=== PATIENT | male | born 1980 | race Caucasian/White ===

== ENCOUNTER 2017-10-05 13:08 | Emergency (ER) | payer BC ==
[2017-10-05] MEDS ORDERED: DUONEB 0.5-3 MG/3 ml Neb IH ONE ×2 (13:23→13:39)
--- NOTE | 2017-10-05 13:29 | ERPHSYRPT ---
- History of Present Illness Time Seen by Provider: 10/05/17 13:24 Source: patient Exam Limitations: no limitations Physician History: The patient is a 37-year-old male who was sent over from [facility] with the patient was being seen for an abrupt onset of shortness of breath that lasted momentarily and for overall weakness. He states that it was hard to get a full breath but now is much better. He also feels just tired and weak. This started earlier today. He denies nausea, vomiting, or diarrhea. He denies headache. He denies sore throat. He did not receive an influenza vaccination this year. His past medical history is significant for pulmonary fibrosis and hypertension. Timing/Duration: today, hour(s) (2) Activities at Onset: none Severity of Dyspnea-Max: mild Severity of Dyspnea-Current: none Possible Cause: no prior episodes Associated Symptoms: cough, No wheezing Allergies/Adverse Reactions: bupropion [From Wellbutrin] Allergy (Verified 10/05/17 13:31) codeine Allergy (Verified 10/05/17 13:31) Home Medications: Fluticasone/Vilanterol [Breo Ellipta 200-25 Mcg INH] 1 inh PO DAILY 10/05/17 [ History] Lisinopril 20 mg [Zestril 20 MG] 20 mg PO DAILY 10/05/17 [History] Hx Tetanus, Diphtheria Vaccination/Date Given: Yes (UP TO DATE) Hx Influenza Vaccination/Date Given: No - Review of Systems Constitutional: No Fever, No Chills Eyes: No Symptoms Ears, Nose, & Throat: No Symptoms Respiratory: Cough Cardiac: No Chest Pain, No Edema, No Syncope Abdominal/Gastrointestinal: No Abdominal Pain, No Nausea, No Vomiting, No Diarrhea Genitourinary Symptoms: No Dysuria Musculoskeletal: No Back Pain, No Neck Pain Skin: No Rash Neurological: No Symptoms Psychological: No Symptoms Endocrine: No Symptoms Hematologic/Lymphatic: No Symptoms Immunological/Allergic: No Symptoms All Other Systems: Reviewed and Negative - Past Medical History Pertinent Past Medical History: Yes Other Medical History: EARS - Past Surgical History Past Surgical History: Yes Other Surgical History: EARS. TONSILECTOMY - Social History Smoking Status: Current every day smoker How long have you smoked: 20 Exposure to second hand smoke: No Drug Use: none Patient Lives Alone: No - Nursing Vital Signs Nursing Vital Signs: Initial Vital Signs Temperature 97.8 F 10/05/17 13:15 Pulse Rate 87 10/05/17 13:15 Respiratory Rate 16 10/05/17 13:15 Blood Pressure 129/88 10/05/17 13:15 O2 Sat by Pulse Oximetry 96 10/05/17 13:15 Pain Scale Pain Intensity 0 - Physical Exam General Appearance: no apparent distress, alert Eye Exam: PERRL/EOMI Ears, Nose, Throat Exam: hearing grossly normal, pharyngeal erythema Neck Exam: normal inspection, supple Respiratory Exam: normal breath sounds, lungs clear Cardiovascular/Chest Exam: normal heart sounds, regular rate/rhythm Abdominal/Gastrointestinal Exam: soft, No tenderness, No distention, No mass Rectal Exam: not done Extremity Exam: non-tender, normal range of motion, normal inspection, no calf tenderness, no pedal edema Neurologic Exam: alert, oriented x 3, cooperative, 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, sensation nml, No motor deficits Skin Exam: normal color, warm, No dry SpO2 Interpretation: normal - Course EKG Interpreted by Me: RATE, Sinus Rhythm, NORMAL AXIS, NORMAL INTERVALS, NORMAL QRS, NORMAL ST-T - Radiology Exams Chest X-ray Interpretation: Teleradiologist Report, Negative (per Dr Douglas.) Ordered Tests: Active Orders 24 hr Category Date Time Status EKG-ER Only STAT Care 10/05/17 13:21 Active CHEST 2 VIEWS (PA AND LAT) Stat Exams 10/05/17 13:22 Completed CBC W DIFF Stat Lab 10/05/17 13:40 Completed CMP Stat Lab 10/05/17 13:40 Completed TROPONIN Q3H Lab 10/05/17 13:30 Completed TROPONIN Q3H Lab 10/05/17 16:30 Ordered TROPONIN Q3H Lab 10/05/17 19:30 Ordered TROPONIN Q3H Lab 10/05/17 22:30 Ordered TROPONIN Q3H Lab 10/06/17 01:30 Ordered Respiratory Nebulizer STAT RT 10/05/17 13:24 Completed Medication Summary Discontinued Medications Generic Name Dose Route Start Last Admin Trade Name Freq PRN Reason Stop Dose Admin Albuterol/Ipratropium 3 ml 10/05/17 13:23 10/05/17 13:39 Duoneb 0.5-3 Mg/3 Ml Neb IH 10/05/17 13:24 3 ml STAT ONE Administration Albuterol/Ipratropium Confirm 10/05/17 13:39 Duoneb 0.5-3 Mg/3 Ml Neb Administered 10/05/17 13:40 Dose 3 ml IH .STK-MED ONE Lab/Rad Data: Laboratory Result Diagrams 10/05/17 13:40 10/05/17 13:40 Laboratory Results 10/05/17 10/05/17 10/05/17 Range/Units 13:40 13:40 13:40 WBC 9.0 (4.0-10.5) K/mm3 RBC 5.02 (4.1-5.6) M/mm3 Hgb 15.2 (12.5-18.0) gm/dl Hct 45.4 (42-50) % MCV 90.4 (78-100) fl MCH 30.3 (26-32) pg MCHC 33.5 (32-36) g/dl RDW 13.3 (11.5-14.0) % Plt Count 225 (150-450) K/mm3 MPV 10.0 H (6-9.5) fl Gran % 62.4 (36.0-66.0) % Lymphocytes % 26.8 (24.0-44.0) % Monocytes % 8.4 (0.0-12.0) % Eosinophils % 2.0 (0.00-5.0) % Basophils % 0.4 (0.0-0.4) % Basophils # 0.04 (0-0.4) Sodium 136 (136-145) mEq/L Potassium 3.8 (3.5-5.1) mEq/L Chloride 99 (98-107) mEq/L Carbon Dioxide 24.1 (21-32) mEq/L Anion Gap 16.4 H (5-15) MEQ/L BUN 10 (9-20) mg/dL Creatinine 0.91 (0.55-1.30) mg/dl Estimated GFR > 60 ML/MIN Glucose 107 (70-110) MG/DL Calcium 9.7 (8.5-10.1) mg/dL Total Bilirubin 0.40 (0.2-1.0) mg/dL AST 28 (15-37) U/L ALT 38 (12-78) U/L Alkaline Phosphatase 91 (46-116) U/L Troponin I (0.000-0.056) ng/ml Serum Total Protein 7.9 (6.4-8.2) gm/dL Albumin 4.0 (3.4-5.0) g/dL Influenza Type A Ag NEGATIVE (NEGATIVE) Influenza Type B Ag NEGATIVE (NEGATIVE) RSV (PCR) NEGATIVE (Negative) 10/05/17 Range/Units 13:30 WBC (4.0-10.5) K/mm3 RBC (4.1-5.6) M/mm3 Hgb (12.5-18.0) gm/dl Hct (42-50) % MCV (78-100) fl MCH (26-32) pg MCHC (32-36) g/dl RDW (11.5-14.0) % Plt Count (150-450) K/mm3 MPV (6-9.5) fl Gran % (36.0-66.0) % Lymphocytes % (24.0-44.0) % Monocytes % (0.0-12.0) % Eosinophils % (0.00-5.0) % Basophils % (0.0-0.4) % Basophils # (0-0.4) Sodium (136-145) mEq/L Potassium (3.5-5.1) mEq/L Chloride (98-107) mEq/L Carbon Dioxide (21-32) mEq/L Anion Gap (5-15) MEQ/L BUN (9-20) mg/dL Creatinine (0.55-1.30) mg/dl Estimated GFR ML/MIN Glucose (70-110) MG/DL Calcium (8.5-10.1) mg/dL Total Bilirubin (0.2-1.0) mg/dL AST (15-37) U/L ALT (12-78) U/L Alkaline Phosphatase (46-116) U/L Troponin I < 0.017 (0.000-0.056) ng/ml Serum Total Protein (6.4-8.2) gm/dL Albumin (3.4-5.0) g/dL Influenza Type A Ag (NEGATIVE) Influenza Type B Ag (NEGATIVE) RSV (PCR) (Negative) - Progress Progress: unchanged Counseled pt/family regarding: lab results, diagnosis, rad results - Departure Time of Disposition: 15:08 Departure Disposition: Home Clinical Impression: Weakness Condition: Stable Critical Care Time: No Referrals: VITALY SOTO [Primary Care Provider] - Additional Instructions: You had a sudden onset of weakness. It may be due to a viral illness. We checked you for influenza infection but the laboratory result was negative. All laboratory results were negative. The EKG was normal. Rest and stay well hydrated. Follow-up as needed.
[2017-10-05 13:47] LABS: BASOPHIL % 0.4 % (0.0-0.4); Basophil (Absolute #) 0.04 (0-0.4); Eosinophil (Absolute #) 0.18 (0-0.5); Granulocyte Absolute (ANC) 5.61 (1.4-6.9); Granulocytes % 62.4 % (36.0-66.0); Hematocrit 45.4 % (42-50); Hemoglobin 15.2 gm/dl (12.5-18.0); Lymphocyte (Absolute #) 2.41 (1.0-4.6); Lymphocytes % 26.8 % (24.0-44.0); Mean Cell Volume 90.4 fl (78-100); Mean Corpuscular Hemoglobin 30.3 pg (26-32); Mean Corpuscular Hgb Concent. 33.5 g/dl (32-36); Monocyte (Absolute #) 0.76 (0.0-1.3); Monocytes % 8.4 % (0.0-12.0); Platelet Count 225 K/mm3 (150-450); Red Blood Count 5.02 M/mm3 (4.1-5.6); Red Cell Distribution Width 13.3 % (11.5-14.0)
--- NOTE | 2017-10-05 14:03 | XRAY ---
Indication: Short of breath. Comparison: May 13, 2017. PA/lateral chest again demonstrates normal heart, lungs, and bony thorax.
[2017-10-05 14:16] LABS: ALKALINE PHOSPHATASE 91 U/L (46-116); ANION GAP 16.4 MEQ/L (5-15); BLOOD UREA NITROGEN 10 mg/dL (9-20); CHLORIDE 99 mEq/L (98-107); Calcium 9.7 mg/dL (8.5-10.1); Carbon Dioxide 24.1 mEq/L (21-32); Creatinine 1 0.91 mg/dl (0.55-1.30); EST GLOMERULAR FILTRATION RATE > 60 ML/MIN; Glucose 107 MG/DL (70-110); Potassium 3.8 mEq/L (3.5-5.1); SGOT/AST 28 U/L (15-37); SGPT/ALT 38 U/L (12-78); SODIUM 136 mEq/L (136-145); Total Protein 7.9 gm/dL (6.4-8.2)
[2017-10-05 14:53] LABS: INFLUENZA A NEGATIVE (NEGATIVE); INFLUENZA B NEGATIVE (NEGATIVE); RESPIRATORY SYNCTIAL VIRUS NEGATIVE (Negative)
[2017-10-05 15:22] VITALS: BP 138/83; PULSE 92; O2SAT 96
== END 2017-10-05 15:23 | disposition home or self-care (01) ==
LOC: ED 13:08
DX: R53.1 Weakness (principal); I10 Essential (primary) hypertension
CPT/HCPCS: 36415; 71046; 80053; 84484; 85025; 87631; 93005; 94640; 99284; A9270-GY

== ENCOUNTER 2022-03-18 07:21 | Emergency (ER) | payer MEDICAID, OTHER ==
--- NOTE | 2022-03-18 07:59 | ERPHSYRPT ---
- History of Present Illness Source: patient, other () Exam Limitations: clinical condition Patient Subjective Stated Complaint: pt here for slurred speech since yesterday, came home from work and 1630 to find pt with slurred speech, he refused to come to be checked out, Triage Nursing Assessment: pt walked in, resp easy, face mask in place, speech slurred at times, has difficulty expressing self, able to undress self Physician History: 41 yo wm w confusion/expressive aphasia since 16:30 yesterday. Pt is alert and will follow commands but is oriented to name only. He has no focal weakness and has a great airway. Pt has a h/o HTN/smokes 1ppd/drinks alcohol daily. CP/dyspnea/N/V/D/fever/cough/coryza/drug use denied. Timing/Duration: yesterday (16:30) Severity: moderate Character of Deficits: impaired speech, other (confusion) Baseline/Normal Cognition: alert oriented x 3, alert but confused Current Cognition: alert but confused (Disoriented to place/time) Baseline Gait: walks w/o assistance Associated Symptoms: confusion, other (Expressive aphasia) Allergies/Adverse Reactions: bupropion [From Wellbutrin] Allergy (Verified 03/18/22 07:28) codeine Allergy (Verified 03/18/22 07:28) Home Medications: Fluticasone/Vilanterol [Breo Ellipta 200-25 Mcg INH] 1 inh PO DAILY 10/05/17 [History] Lisinopril 20 mg [Zestril 20 MG] 20 mg PO DAILY 10/05/17 [History] Hx Tetanus, Diphtheria Vaccination/Date Given: Yes (UP TO DATE) Hx Influenza Vaccination/Date Given: No Hx Pneumococcal Vaccination/Date Given: No Immunizations Up to Date: Yes Travel Risk - International Travel Have you traveled outside of the country in past 3 weeks: No - Coronavirus Screening Are you exhibiting any of the following symptoms?: No Close contact with a COVID-19 positive Pt in past 14-21 Days: No - Vaccine Status Have you recieved a Covid-19 vaccination: No - Review of Systems Constitutional: No Symptoms Eyes: No Symptoms Ears, Nose, & Throat: No Symptoms Respiratory: No Symptoms Cardiac: No Symptoms Abdominal/Gastrointestinal: No Symptoms Genitourinary Symptoms: No Symptoms Musculoskeletal: No Symptoms Skin: No Symptoms Neurological: Other (Confusion/Expressive aphasia) Psychological: Alcohol Abuse Endocrine: No Symptoms Hematologic/Lymphatic: No Symptoms Immunological/Allergic: No Symptoms - Past Medical History Pertinent Past Medical History: Yes Cardiac History: Hypertension Respiratory History: Other Other Medical History: EARS - Past Surgical History Past Surgical History: Yes Other Surgical History: EARS. TONSILECTOMY - Social History Smoking Status: Current every day smoker How long have you smoked: 20 Exposure to second hand smoke: No Drug Use: none Patient Lives Alone: No Significant Family History: no pertinent family hx - Nursing Vital Signs Nursing Vital Signs: Initial Vital Signs Temperature 97.1 F 03/18/22 07:30 Pulse Rate 62 03/18/22 07:30 Respiratory Rate 18 03/18/22 07:30 Blood Pressure 131/89 03/18/22 07:30 O2 Sat by Pulse Oximetry 100 03/18/22 07:30 Pain Scale Pain Intensity 0 Borderline hypertensive - Pearl Coma Scale Best Eye Response (Pearl): (4) open spontaneously Best Verbal Response (Ferriday): (5) oriented Best Motor Response (Pearl): (6) obeys commands Pearl Total: 15 - Physical Exam General Appearance: no apparent distress Eye Exam: bilateral eye: normal inspection, PERRL, EOMI Ears, Nose, Throat Exam: normal ENT inspection, TMs normal, pharynx normal, moist mucous membranes Neck Exam: normal inspection, non-tender, supple, full range of motion Respiratory: normal breath sounds, lungs clear, airway intact Cardiovascular: regular rate/rhythm, normal heart sounds, normal peripheral pulses, capillary refill <2 sec, No murmur Gastrointestinal: soft, normal bowel sounds, No tenderness Back Exam: normal inspection, normal range of motion, CVA tenderness, No vertebral tenderness Extremity Exam: normal inspection, normal range of motion Peripheral Pulses: carotid (R): 2+, carotid (L): 2+ Mental Status: alert, cooperative, 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 to place, 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 Exam: normal hearing, PERRL, No normal speech, No facial droop, No facial paresthesias, No facial weakness Motor/Sensory: no motor deficit, negative Babinski's sign DTR: bicep (R): 2+, bicep (L): 2+ Skin Exam: normal color, warm, dry SpO2 Interpretation: normal SpO2: 100 O2 Delivery: Room Air - Course Nursing assessment & vital signs reviewed: Yes EKG Interpreted by Me: RATE (NSR/R71/Normal QT-QTc/No acute ST changes) - CT Exams Head CT Interpretation: Tele-radiologist Report (Acute/subacute infarcts L posterior frontal/l temporal/L parietal lobes) Ordered Tests: Active Orders 24 hr Category Date Time Status EKG-ER Only STAT Care 03/18/22 07:36 Completed HEAD WITHOUT CONTRAST [CT] Stat Exams 03/18/22 07:31 Completed CBC W DIFF Stat Lab 03/18/22 07:55 Completed CMP Stat Lab 03/18/22 07:55 Completed ETHYL ALCOHOL Stat Lab 03/18/22 07:55 Completed POCT GLUCOSE Stat Lab 03/18/22 07:49 Completed PROTIME WITH INR Stat Lab 03/18/22 07:55 Completed PTT Stat Lab 03/18/22 07:55 Completed TROPONIN Q3H Lab 03/18/22 07:55 Completed UA W/RFX CULTURE Stat Lab 03/18/22 08:00 Completed Urine Triage Profile Stat Lab 03/18/22 07:42 Completed Medication Summary Discontinued Medications Generic Name Dose Route Start Last Admin Trade Name Freq PRN Reason Stop Dose Admin Aspirin 324 mg 03/18/22 09:33 03/18/22 09:35 Aspirin 81 Mg Tab.Chew PO 03/18/22 09:34 324 mg STAT ONE Administration Lab/Rad Data: Laboratory Result Diagrams 03/18/22 07:55 03/18/22 07:55 Laboratory Results 03/18/22 03/18/22 03/18/22 Range/Units 08:00 07:55 07:55 WBC (4.0-10.5) x10^3/uL RBC (4.1-5.6) x10^6/uL Hgb (12.5-18.0) g/dL Hct (42-50) % MCV (78-100) fL MCH (26-32) pg MCHC (32-36) g/dL RDW (11.5-14.0) % Plt Count (150-450) x10^3/uL MPV (7.5-11.0) fL Gran % (36.0-66.0) % Immature Gran % (Auto) (0.00-0.4) % Nucleat RBC Rel Count (0.00-0.1) % Eos # (Auto) (0-0.5) x10^3/uL Immature Gran # (Auto) (0.00-0.03) x10^3u/L Absolute Lymphs (auto) (1.0-4.6) x10^3/uL Absolute Monos (auto) (0.0-1.3) x10^3/uL Absolute Nucleated RBC (0.00-0.01) x10^3u/L Lymphocytes % (24.0-44.0) % Monocytes % (0.0-12.0) % Eosinophils % (0.00-5.0) % Basophils % (0.0-0.4) % Absolute Granulocytes (1.4-6.9) x10^3/uL Basophils # (0-0.4) x10^3/uL PT 11.3 (9.4-12.5) SECONDS INR 1.07 (0.8-3.0) APTT 26.4 (25.1-36.5) SECONDS Sodium (137-145) mmol/L Potassium (3.5-5.1) mmol/L Chloride (98-107) mmol/L Carbon Dioxide (22-30) mmol/L Anion Gap (5-15) MEQ/L BUN (9-20) mg/dL Creatinine (0.66-1.25) mg/dL Estimated GFR ML/MIN Glucose (74-106) mg/dL POC Glucometer (74 to 106) mg/dL Calcium (8.4-10.2) mg/dL Total Bilirubin (0.2-1.3) mg/dL AST (17-59) U/L ALT (0-50) U/L Alkaline Phosphatase (38-126) U/L Troponin I < 0.012 (0.000-0.034) ng/mL Serum Total Protein (6.3-8.2) g/dL Albumin (3.5-5.0) g/dL Urinalys Dipstick Clnc MAIN LAB Urine Color YELLOW (YELLOW) Urine Appearance CLOUDY (CLEAR) Urine pH 5.5 (5-6) Ur Specific [place] >=1.030 (1.005-1.025) POC Urine Protein Conf 30 (Negative) Urine Ketones NEGATIVE (NEGATIVE) Urine Nitrite NEGATIVE (NEGATIVE) Urine Bilirubin SMALL (NEGATIVE) Urine Urobilinogen 1 (0-1) mg/dL Urine Leukocytes NEGATIVE (NEGATIVE) Urine WBC (Auto) NONE (0-5) /HPF Urine RBC (Auto) NONE (0-2) /HPF U Epithel Cells (Auto) RARE (FEW) /HPF Urine Bacteria (Auto) RARE (NEGATIVE) /HPF Urine RBC NEGATIVE (0-5) Daniele/ul Unidentified Crystals 25-50 (NEGATIVE) /HPF Amorphous Crystals MANY (NEGATIVE) /HPF Other Casts (Auto) 5-10 (NEGATIVE) /LPF Urine Mucus (Auto) MANY (NEGATIVE) /HPF Ur Culture Indicated? NO Urine Glucose NEGATIVE (NEGATIVE) mg/dL Urine Opiates Level (NEGATIVE) Ur Methadone (NEGATIVE) Urine Barbiturates (NEGATIVE) Ur Phencyclidine (PCP) (NEGATIVE) Urine Amphetamine (NEGATIVE) U Benzodiazepine Level (NEGATIVE) Urine Cocaine (NEGATIVE) Urine Marijuana (THC) (NEGATIVE) Ethyl Alcohol (0-10) mg/dL 03/18/22 03/18/22 03/18/22 Range/Units 07:55 07:55 07:49 WBC 8.1 (4.0-10.5) x10^3/uL RBC 4.71 (4.1-5.6) x10^6/uL Hgb 15.8 (12.5-18.0) g/dL Hct 46.3 (42-50) % MCV 98.3 (78-100) fL MCH 33.5 H (26-32) pg MCHC 34.1 (32-36) g/dL RDW 13.2 (11.5-14.0) % Plt Count 234 (150-450) x10^3/uL MPV 10.2 (7.5-11.0) fL Gran % 63.3 (36.0-66.0) % Immature Gran % (Auto) 0.5 H (0.00-0.4) % Nucleat RBC Rel Count 0.0 (0.00-0.1) % Eos # (Auto) 0.14 (0-0.5) x10^3/uL Immature Gran # (Auto) 0.04 H (0.00-0.03) x10^3u/L Absolute Lymphs (auto) 1.91 (1.0-4.6) x10^3/uL Absolute Monos (auto) 0.83 (0.0-1.3) x10^3/uL Absolute Nucleated RBC 0.00 (0.00-0.01) x10^3u/L Lymphocytes % 23.6 L (24.0-44.0) % Monocytes % 10.2 (0.0-12.0) % Eosinophils % 1.7 (0.00-5.0) % Basophils % 0.7 (0.0-0.4) % Absolute Granulocytes 5.13 (1.4-6.9) x10^3/uL Basophils # 0.06 (0-0.4) x10^3/uL PT (9.4-12.5) SECONDS INR (0.8-3.0) APTT (25.1-36.5) SECONDS Sodium 137 (137-145) mmol/L Potassium 4.0 (3.5-5.1) mmol/L Chloride 100 (98-107) mmol/L Carbon Dioxide 27 (22-30) mmol/L Anion Gap 13.8 (5-15) MEQ/L BUN 16 (9-20) mg/dL Creatinine 1.16 (0.66-1.25) mg/dL Estimated GFR > 60.0 ML/MIN Glucose 122 H (74-106) mg/dL POC Glucometer 130 H (74 to 106) mg/dL Calcium 9.7 (8.4-10.2) mg/dL Total Bilirubin 0.80 (0.2-1.3) mg/dL AST 51 (17-59) U/L ALT 44 (0-50) U/L Alkaline Phosphatase 106 (38-126) U/L Troponin I (0.000-0.034) ng/mL Serum Total Protein 7.8 (6.3-8.2) g/dL Albumin 4.4 (3.5-5.0) g/dL Urinalys Dipstick Clnc Urine Color (YELLOW) Urine Appearance (CLEAR) Urine pH (5-6) Ur Specific [place] (1.005-1.025) POC Urine Protein Conf (Negative) Urine Ketones (NEGATIVE) Urine Nitrite (NEGATIVE) Urine Bilirubin (NEGATIVE) Urine Urobilinogen (0-1) mg/dL Urine Leukocytes (NEGATIVE) Urine WBC (Auto) (0-5) /HPF Urine RBC (Auto) (0-2) /HPF U Epithel Cells (Auto) (FEW) /HPF Urine Bacteria (Auto) (NEGATIVE) /HPF Urine RBC (0-5) Daniele/ul Unidentified Crystals (NEGATIVE) /HPF Amorphous Crystals (NEGATIVE) /HPF Other Casts (Auto) (NEGATIVE) /LPF Urine Mucus (Auto) (NEGATIVE) /HPF Ur Culture Indicated? Urine Glucose (NEGATIVE) mg/dL Urine Opiates Level (NEGATIVE) Ur Methadone (NEGATIVE) Urine Barbiturates (NEGATIVE) Ur Phencyclidine (PCP) (NEGATIVE) Urine Amphetamine (NEGATIVE) U Benzodiazepine Level (NEGATIVE) Urine Cocaine (NEGATIVE) Urine Marijuana (THC) (NEGATIVE) Ethyl Alcohol < 10 (0-10) mg/dL 03/18/22 Range/Units 07:42 WBC (4.0-10.5) x10^3/uL RBC (4.1-5.6) x10^6/uL Hgb (12.5-18.0) g/dL Hct (42-50) % MCV (78-100) fL MCH (26-32) pg MCHC (32-36) g/dL RDW (11.5-14.0) % Plt Count (150-450) x10^3/uL MPV (7.5-11.0) fL Gran % (36.0-66.0) % Immature Gran % (Auto) (0.00-0.4) % Nucleat RBC Rel Count (0.00-0.1) % Eos # (Auto) (0-0.5) x10^3/uL Immature Gran # (Auto) (0.00-0.03) x10^3u/L Absolute Lymphs (auto) (1.0-4.6) x10^3/uL Absolute Monos (auto) (0.0-1.3) x10^3/uL Absolute Nucleated RBC (0.00-0.01) x10^3u/L Lymphocytes % (24.0-44.0) % Monocytes % (0.0-12.0) % Eosinophils % (0.00-5.0) % Basophils % (0.0-0.4) % Absolute Granulocytes (1.4-6.9) x10^3/uL Basophils # (0-0.4) x10^3/uL PT (9.4-12.5) SECONDS INR (0.8-3.0) APTT (25.1-36.5) SECONDS Sodium (137-145) mmol/L Potassium (3.5-5.1) mmol/L Chloride (98-107) mmol/L Carbon Dioxide (22-30) mmol/L Anion Gap (5-15) MEQ/L BUN (9-20) mg/dL Creatinine (0.66-1.25) mg/dL Estimated GFR ML/MIN Glucose (74-106) mg/dL POC Glucometer (74 to 106) mg/dL Calcium (8.4-10.2) mg/dL Total Bilirubin (0.2-1.3) mg/dL AST (17-59) U/L ALT (0-50) U/L Alkaline Phosphatase (38-126) U/L Troponin I (0.000-0.034) ng/mL Serum Total Protein (6.3-8.2) g/dL Albumin (3.5-5.0) g/dL Urinalys Dipstick Clnc Urine Color (YELLOW) Urine Appearance (CLEAR) Urine pH (5-6) Ur Specific [place] (1.005-1.025) POC Urine Protein Conf (Negative) Urine Ketones (NEGATIVE) Urine Nitrite (NEGATIVE) Urine Bilirubin (NEGATIVE) Urine Urobilinogen (0-1) mg/dL Urine Leukocytes (NEGATIVE) Urine WBC (Auto) (0-5) /HPF Urine RBC (Auto) (0-2) /HPF U Epithel Cells (Auto) (FEW) /HPF Urine Bacteria (Auto) (NEGATIVE) /HPF Urine RBC (0-5) Daniele/ul Unidentified Crystals (NEGATIVE) /HPF Amorphous Crystals (NEGATIVE) /HPF Other Casts (Auto) (NEGATIVE) /LPF Urine Mucus (Auto) (NEGATIVE) /HPF Ur Culture Indicated? Urine Glucose (NEGATIVE) mg/dL Urine Opiates Level NEGATIVE (NEGATIVE) Ur Methadone NEGATIVE (NEGATIVE) Urine Barbiturates NEGATIVE (NEGATIVE) Ur Phencyclidine (PCP) NEGATIVE (NEGATIVE) Urine Amphetamine NEGATIVE (NEGATIVE) U Benzodiazepine Level NEGATIVE (NEGATIVE) Urine Cocaine NEGATIVE (NEGATIVE) Urine Marijuana (THC) NEGATIVE (NEGATIVE) Ethyl Alcohol (0-10) mg/dL - Progress Progress Note: 03/18/22 09:[address] Buckner at [facility]Ok to give 324mg ASA po 03/18/22 21:10 Pt stable throughout stay w consistent expressive aphasia/mild confusion. 342mg ASA given./Pt did not meet TPA time frame. Counseled pt/family regarding: lab results, diagnosis, rad results - Departure Departure Disposition: Transfer Clinical Impression: CVA (cerebral vascular accident) Condition: Stable Critical Care Time: Yes Critical Care Time(excluding separately billable procedures): Critical 30-74 mins Referrals: VITALY SOTO, [employer]PERATOR [Primary Care Provider] - Follow up/PCP as directed
[2022-03-18 08:08] LABS: Bacteria RARE /HPF (NEGATIVE); Epithelial Cells RARE /HPF (FEW); Mucus MANY /HPF (NEGATIVE)
[2022-03-18 08:10] LABS: Absolute Neutrophil Ct (ANC) 5.13 x10^3/uL (1.4-6.9); Basophil (Absolute #) 0.06 x10^3/uL (0-0.4); Eosinophil % 1.7 % (0.00-5.0); Eosinophil (Absolute #) 0.14 x10^3/uL (0-0.5); Hematocrit 46.3 % (42-50); Hemoglobin 15.8 g/dL (12.5-18.0); Lymphocyte (Absolute #) 1.91 x10^3/uL (1.0-4.6); Lymphocytes % 23.6 % (24.0-44.0); Mean Cell Volume 98.3 fL (78-100); Mean Corpuscular Hemoglobin 33.5 pg (26-32); Mean Corpuscular Hgb Concent. 34.1 g/dL (32-36); Mean Platelet Volume 10.2 fL (7.5-11.0); Monocyte (Absolute #) 0.83 x10^3/uL (0.0-1.3); Monocytes % 10.2 % (0.0-12.0); Neutrophil % 63.3 % (36.0-66.0); Platelet Count 234 x10^3/uL (150-450); Red Blood Count 4.71 x10^6/uL (4.1-5.6); Red Cell Distribution Width 13.2 % (11.5-14.0); White Blood Count 8.1 x10^3/uL (4.0-10.5)
[2022-03-18 08:20] LABS: Appearance CLOUDY (CLEAR); Bilirubin SMALL (NEGATIVE); Glucose NEGATIVE (NEGATIVE); Ketones NEGATIVE (NEGATIVE); Nitrite NEGATIVE (NEGATIVE); Ph 5.5 (5-6); Protein,Urine Dip 30 (Negative); RBC NEGATIVE Ery/ul (0-5); Specific Gravity >=1.030 (1.005-1.025); Urobilinogen 1 mg/dL (0-1)
[2022-03-18 08:21] LABS: Dipstick done @ ? MAIN LAB
[2022-03-18 08:22] LABS: Amphetamine,Urine NEGATIVE (NEGATIVE); Barbiturate,Urine NEGATIVE (NEGATIVE); Benzodiazepine,Urine NEGATIVE (NEGATIVE); Cocaine,Urine NEGATIVE (NEGATIVE); Methadone,Urine NEGATIVE (NEGATIVE); Opiate,Urine NEGATIVE (NEGATIVE); PCP,Urine NEGATIVE (NEGATIVE); THC,Urine NEGATIVE (NEGATIVE)
[2022-03-18 08:36] LABS: Amourphous Crystal MANY /HPF (NEGATIVE); Crystals Unidentified 25-50 /HPF (NEGATIVE)
[2022-03-18 08:47] LABS: ALBUMIN 4.4 g/dL (3.5-5.0); ALKALINE PHOSPHATASE 106 U/L (38-126); ANION GAP 13.8 MEQ/L (5-15); BLOOD UREA NITROGEN 16 mg/dL (9-20); CHLORIDE 100 mmol/L (98-107); Calcium 9.7 mg/dL (8.4-10.2); Carbon Dioxide 27 mmol/L (22-30); Creatinine 1 1.16 mg/dL (0.66-1.25); EST GLOMERULAR FILTRATION RATE > 60.0 ML/MIN; ETHYL ALCOHOL < 10 mg/dL (0-10); Glucose 122 mg/dL (74-106); SGOT/AST 51 U/L (17-59); SGPT/ALT 44 U/L (0-50); SODIUM 137 mmol/L (137-145); Total Protein 7.8 g/dL (6.3-8.2)
[2022-03-18 08:49] LABS: INR 1.07 (0.8-3.0); PROTIME 11.3 SECONDS (9.4-12.5); PTT 26.4 SECONDS (25.1-36.5)
--- NOTE | 2022-03-18 08:50 | XRAY ---
Indication: Slurred speech. Confusion. Multiple contiguous images obtained through the head without contrast. Comparison: None Left midanterior parietal lobe demonstrates focus of cortical/subcortical hypoattenuation measuring at least 3.8 x 3.8 x 4.7 cm favoring cytotoxic edema consistent with acute ischemia. Smaller focus acute ischemia left posterior parietal lobe measuring at least 2.4 x 2.1 x 2.0 cm. No acute hemorrhage or mass effect. Fourth ventricle is midline without hydrocephalus. Bony calvarium intact. Previous bilateral mastoidectomy. Paranasal sinuses are clear. Impression: CT findings favoring multifocal left parietal lobe acute ischemias. No acute hemorrhage/mass effect. Comment: Preliminary interpretation made by [facility]. No critical discrepancy.
[2022-03-18] MEDS ORDERED: BABY ASPIRIN 81 MG CHEW PO ONE (09:33)
[2022-03-18 10:21] VITALS: BP 134/93; PULSE 73
[2022-03-18 13:26] LABS: Urine Cultured Indicated? NO
[2022-03-18 21:13] VITALS: O2SAT 100
== END 2022-03-18 10:45 | disposition short-term general hospital (02) ==
LOC: ED 07:21
DX: I63.9 Cerebral infarction, unspecified (principal); R47.01 Aphasia; I10 Essential (primary) hypertension; R41.0 Disorientation, unspecified; Z72.0 Tobacco use; Z79.899 Other long term (current) drug therapy; Z28.310 Unvaccinated for COVID-19
CPT/HCPCS: 36415; 70450; 80053; 80307; 81015; 82947; 84484; 85025; 85610; 85730; 93005; 99285; 99291; A9270-GY; G0480

== ENCOUNTER 2024-03-07 22:22 | Emergency (ER) | payer OTHER ==
--- NOTE | 2024-03-07 22:37 | ERPHSYRPT ---
- History of Present Illness Time Seen by Provider: 03/07/24 22:37 Historian: patient, family Exam Limitations: no limitations Physician History: This is a 43-year-old white male patient who has a history of hyperlipidemia, hypertension and CVA (in the past) and presents with vomiting that began this morning and repeated an episode at work and at home after work. 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 Today the symptoms were worse. Today he was actually vomiting. Patient, despite having nausea and vomiting, still consumed "2 beers" after work yesterday and after work today. He denies chest pain. He denies shortness of breath. He denies abdominal pain. He does not have a headache. He has no visual changes. Patient is a daily smoker of cigarettes. Patient denies being exposed to viral illness. He also states no other individuals have had similar symptoms as he is having. Timing/Duration: yesterday Activities at Onset: none Severity of Pain-Max: none Severity of Pain-Current: none Modifying Factors: Improves With: vomiting Associated Symptoms: nausea, vomiting, other (Leg cramps), No chest pain, No loss of appetite, No weakness Previous symptoms: no prior history, no recent treatment Allergies/Adverse Reactions: bupropion [From Wellbutrin] Allergy (Verified 03/07/24 22:31) codeine Allergy (Verified 03/07/24 22:31) Home Medications: Lisinopril 20 mg [Zestril 20 MG] 10 mg PO HS 10/05/17 [History] Atorvastatin Calcium [Lipitor] 80 mg PO HS 03/07/24 [History] Folic Acid 1 mg [Folate 1 mg] 1 mg PO HS 03/07/24 [History] Hx Tetanus, Diphtheria Vaccination/Date Given: Yes (UP TO DATE) Hx Influenza Vaccination/Date Given: No Hx Pneumococcal Vaccination/Date Given: No Travel Risk - International Travel Have you traveled outside of the country in past 3 weeks: No - Emerging Infectious Disease Are you exhibiting symptoms associated with any current EIDs: No - Review of Systems Constitutional: No Symptoms Eyes: No Symptoms Ears, Nose, & Throat: No Symptoms Respiratory: No Symptoms Cardiac: No Symptoms Abdominal/Gastrointestinal: Nausea, Vomiting, No Abdominal Pain, No Diarrhea, No Constipation, No Appetite Changes Genitourinary Symptoms: No Symptoms Musculoskeletal: Other (Patient has muscle cramping in his legs and arms) Skin: No Symptoms Neurological: No Symptoms Psychological: No Symptoms Endocrine: No Symptoms Hematologic/Lymphatic: No Symptoms Immunological/Allergic: No Symptoms All Other Systems: Reviewed and Negative - Past Medical History Pertinent Past Medical History: Yes Cardiac History: Hypertension Respiratory History: Other Other Medical History: EARS - Past Surgical History Past Surgical History: Yes Other Surgical History: EARS. TONSILECTOMY Significant Family History: no pertinent family hx - Social History Smoking Status: Current every day smoker How long have you smoked: 20 Exposure to second hand smoke: No Drug Use: none Patient Lives Alone: No - Nursing Vital Signs Nursing Vital Signs: Initial Vital Signs Temperature 98.1 F 03/07/24 22:34 Pulse Rate 76 03/07/24 22:34 Respiratory Rate 16 03/07/24 22:34 Blood Pressure 151/104 03/07/24 22:34 O2 Sat by Pulse Oximetry 99 03/07/24 22:34 Pain Scale Pain Intensity 0 - Physical Exam General Appearance: no apparent distress, alert Eye Exam: PERRL/EOMI, eyes nml inspection Ears, Nose, Throat Exam: normal ENT inspection, moist mucous membranes Neck Exam: normal inspection, non-tender, supple, full range of motion Respiratory Exam: normal breath sounds, lungs clear, airway intact, No chest tenderness, No respiratory distress Cardiovascular Exam: regular rate/rhythm, normal heart sounds, normal peripheral pulses Gastrointestinal/Abdomen Exam: soft, normal bowel sounds, No tenderness Rectal Exam: not done Back Exam: normal inspection, normal range of motion, No CVA tenderness, No vertebral tenderness Extremity Exam: normal inspection, normal range of motion, pelvis stable Neurologic Exam: alert, oriented x 3, cooperative, materials planner II-XII nml as tested, normal mood/affect, nml cerebellar function, nml station & gait, sensation nml Skin Exam: normal color, warm, dry Lymphatic Exam: No adenopathy SpO2 Interpretation: normal O2 Delivery: Room Air - Course Nursing assessment & vital signs reviewed: Yes Ordered Tests: Active Orders 24 hr Category Date Time Status IV Insertion STAT Care 03/07/24 22:52 Active AMYLASE Stat Lab 03/07/24 23:05 Completed CBC W DIFF Stat Lab 06/05/24 23:05 Completed CMP Stat Lab 03/07/24 23:05 Completed ETHYL ALCOHOL Stat Lab 03/07/24 23:05 Completed LIPASE Stat Lab 03/07/24 23:05 Completed Lactic Acid Stat Lab 03/07/24 22:52 Completed MAGNESIUM Stat Lab 03/07/24 23:05 Completed UA W/RFX UR CULTURE Stat Lab 03/07/24 22:54 Completed Medication Summary Generic Name Dose Route Start Last Admin Trade Name Freq PRN Reason Stop Dose Admin Sodium Chloride 1,000 mls @ 999 mls/hr 03/07/24 22:52 03/07/24 23:00 Sodium Chloride 0.9% 1000 Ml IV 03/07/24 23:52 999 mls/hr .Q1H1M STA Administration Discontinued Medications Generic Name Dose Route Start Last Admin Trade Name Freq PRN Reason Stop Dose Admin Sodium Chloride Confirm 03/07/24 22:55 Sodium Chloride 0.9% 1000 Ml Administered 03/07/24 22:56 Dose 1,000 mls @ ud .ROUTE .STK-MED ONE Ondansetron HCl 4 mg 03/07/24 22:52 03/07/24 23:00 Ondansetron Hcl 4 Mg/2 Ml Vial IV 03/07/24 22:53 4 mg STAT ONE Administration Ondansetron HCl Confirm 03/07/24 22:55 Ondansetron Hcl 4 Mg/2 Ml Vial Administered 03/07/24 22:56 Dose 4 mg .ROUTE .STK-MED ONE Pantoprazole Sodium 40 mg 03/07/24 22:52 03/07/24 23:00 Pantoprazole 40 Mg Vial IV 03/07/24 22:53 40 mg STAT ONE Administration Pantoprazole Sodium Confirm 03/07/24 22:55 Pantoprazole 40 Mg Vial Administered 03/07/24 22:56 Dose 40 mg IV .STK-MED ONE Lab/Rad Data: Laboratory Result Diagrams 03/07/24 23:05 03/07/24 23:05 Laboratory Results 03/07/24 03/07/24 03/07/24 Range/Units 23:05 23:05 22:54 WBC 10.5 (4.0-10.5) x10^3/uL RBC 4.77 (4.1-5.6) x10^6/uL Hgb 14.3 (12.5-18.0) g/dL Hct 41.6 L (42-50) % MCV 87.2 (78-100) fL MCH 30.0 (26-32) pg MCHC 34.4 (32-36) g/dL RDW 12.5 (11.5-14.0) % Plt Count 226 (150-450) x10^3/uL MPV 10.2 (7.5-11.0) fL Gran % 53.8 (36.0-66.0) % Immature Gran % (Auto) 0.5 H (0.00-0.4) % Nucleat RBC Rel Count 0.0 (0.00-0.1) % Eos # (Auto) 0.25 (0-0.5) x10^3/uL Immature Gran # (Auto) 0.05 H (0.00-0.03) x10^3u/L Absolute Lymphs (auto) 3.60 (1.0-4.6) x10^3/uL Absolute Monos (auto) 0.84 (0.0-1.3) x10^3/uL Absolute Nucleated RBC 0.00 (0.00-0.01) x10^3u/L Lymphocytes % 34.4 (24.0-44.0) % Monocytes % 8.0 (0.0-12.0) % Eosinophils % 2.4 (0.00-5.0) % Basophils % 0.9 (0.0-0.4) % Absolute Granulocytes 5.63 (1.4-6.9) x10^3/uL Basophils # 0.09 (0-0.4) x10^3/uL Sodium 135 (135-145) mmol/L Potassium 3.6 (3.5-5.1) mmol/L Chloride 104 (98-107) mmol/L Carbon Dioxide 18 L (22-30) mmol/L Anion Gap 16.6 H (5-15) MEQ/L BUN 21 H (9-20) mg/dL Creatinine 1.05 (0.66-1.25) mg/dL Estimated GFR 91.5 ML/MIN Glucose 124 H (74-106) mg/dL Lactic Acid (0.4-2.0) Calcium 9.5 (8.4-10.2) mg/dL Magnesium 1.9 (1.6-2.3) mg/dL Total Bilirubin 0.50 (0.2-1.3) mg/dL AST 28 (17-59) U/L ALT 24 (0-50) U/L Alkaline Phosphatase 97 (38-126) U/L Serum Total Protein 7.7 (6.3-8.2) g/dL Albumin 4.6 (3.5-5.0) g/dL Amylase 64 (30-110) U/L Lipase 103 (23-300) U/L Urine Color Yellow (Yellow) Urine Appearance Clear (Clear) Urine pH 5.5 (4.6-8.0) Ur Specific [place] >=1.030 A (1.005-1.030) Urine Protein Trace A (Negative) Urine Glucose (UA) Negative (Negative) mg/dL Urine Ketones Trace A (Negative) Urine Blood Negative (Negative) Urine Nitrite Negative (Negative) Urine Bilirubin Negative (Negative) Urine Urobilinogen 1.0 A (0.2) mg/dL Ur Leukocyte Esterase Negative (Negative) U Hyaline Cast (Auto) NONE SEEN (0-2) /LPF Urine Microscopic RBC 0-2 (0-5) /HPF Urine Microscopic WBC 0-2 (0-5) /HPF Ur Epithelial Cells None Seen (None Seen) /HPF Urine Bacteria None Seen (None Seen) /HPF Urine Culture Reflexed NO (NO) Ethyl Alcohol < 10 (0-10) mg/dL 03/07/24 Range/Units 22:52 WBC (4.0-10.5) x10^3/uL RBC (4.1-5.6) x10^6/uL Hgb (12.5-18.0) g/dL Hct (42-50) % MCV (78-100) fL MCH (26-32) pg MCHC (32-36) g/dL RDW (11.5-14.0) % Plt Count (150-450) x10^3/uL MPV (7.5-11.0) fL Gran % (36.0-66.0) % Immature Gran % (Auto) (0.00-0.4) % Nucleat RBC Rel Count (0.00-0.1) % Eos # (Auto) (0-0.5) x10^3/uL Immature Gran # (Auto) (0.00-0.03) x10^3u/L Absolute Lymphs (auto) (1.0-4.6) x10^3/uL Absolute Monos (auto) (0.0-1.3) x10^3/uL Absolute Nucleated RBC (0.00-0.01) x10^3u/L Lymphocytes % (24.0-44.0) % Monocytes % (0.0-12.0) % Eosinophils % (0.00-5.0) % Basophils % (0.0-0.4) % Absolute Granulocytes (1.4-6.9) x10^3/uL Basophils # (0-0.4) x10^3/uL Sodium (135-145) mmol/L Potassium (3.5-5.1) mmol/L Chloride (98-107) mmol/L Carbon Dioxide (22-30) mmol/L Anion Gap (5-15) MEQ/L BUN (9-20) mg/dL Creatinine (0.66-1.25) mg/dL Estimated GFR ML/MIN Glucose (74-106) mg/dL Lactic Acid 1.0 (0.4-2.0) Calcium (8.4-10.2) mg/dL Magnesium (1.6-2.3) mg/dL Total Bilirubin (0.2-1.3) mg/dL AST (17-59) U/L ALT (0-50) U/L Alkaline Phosphatase (38-126) U/L Serum Total Protein (6.3-8.2) g/dL Albumin (3.5-5.0) g/dL Amylase (30-110) U/L Lipase (23-300) U/L Urine Color (Yellow) Urine Appearance (Clear) Urine pH (4.6-8.0) Ur Specific [place] (1.005-1.030) Urine Protein (Negative) Urine Glucose (UA) (Negative) mg/dL Urine Ketones (Negative) Urine Blood (Negative) Urine Nitrite (Negative) Urine Bilirubin (Negative) Urine Urobilinogen (0.2) mg/dL Ur Leukocyte Esterase (Negative) U Hyaline Cast (Auto) (0-2) /LPF Urine Microscopic RBC (0-5) /HPF Urine Microscopic WBC (0-5) /HPF Ur Epithelial Cells (None Seen) /HPF Urine Bacteria (None Seen) /HPF Urine Culture Reflexed (NO) Ethyl Alcohol (0-10) mg/dL - Progress Progress: improved, re-examined Progress Note: 03/07/24 23:22 My medical decision making and the assignment of moderate complexity to this patient's medical issue today is based on review of the patient's past medical history, review of the patient's medication list, review the patient drug allergy list, history present illness and physical findings on examination. The workup includes placement of intravenous line, infusion of normal saline solution, infusion of Zofran intravenously, infusion of Protonix intravenously, obtain a CBC, CMP, amylase, lipase, ethyl alcohol level, urinalysis and magnesium level. Differential diagnosis includes dehydration, electrolyte abnormalities, acute alcohol intoxication 03/07/24 23:42 I interpreted the patient's laboratory data results. Based on the laboratory data results, the patient does have mild dehydration. No other acute or emergent medical issue is present. Counseled pt/family regarding: lab results, diagnosis, need for follow-up Medical Desision Making - Independent Historian Additional History obtained from: Spouse - Diagnostic Testing Diagnostic test were ordered, analyzed, and reviewed by me: Yes - Risk of complications The pt has a mod risk of morbidity or mortality based on: Need for prescription drug management - Departure Departure Disposition: Home Clinical Impression: Vomiting, Mild dehydration Condition: Stable Critical Care Time: No Referrals: RODRIGO VELAZQUEZ MD [Primary Care Provider] - Follow up/PCP as directed Additional Instructions: Drink plenty of clear liquids over the next 12 to 24 hours before advancing your diet. Avoid fatty greasy spicy foods. Avoid alcohol tobacco and nicotine ingestion. Take your medications as prescribed. Call your primary care provider tomorrow, 03/08/2024 to make arranges for follow-up appointment to be seen in the next 3 to 5 days. Prescriptions: Ondansetron ODT 4 MG [Zofran Odt 4 mg] 4 mg PO Q6H PRN PRN #10 tablet PRN Reason: Vomiting Famotidine 20 mg [Pepcid 20 MG] 20 mg PO DAILY #10 tablet
[2024-03-07 22:42] VITALS: TEMP 98.1
[2024-03-07] MEDS ORDERED: Zofran 4 MG/2 ML VIAL ONE (22:55)
[2024-03-07] MEDS ORDERED: PROTONIX 40 MG IV IV ONE (22:55)
[2024-03-07] MEDS ORDERED: Sodium Chloride 0.9% 1000 ML 1,000 ML ONE (22:55)
[2024-03-07] MEDS: PROTONIX 40 MG IV IV ONE (23:00)
[2024-03-07] MEDS: Sodium Chloride 0.9% 1000 ML 1,000 ML IV STA (23:00)
[2024-03-07] MEDS: Zofran 4 MG/2 ML VIAL IV ONE (23:00)
[2024-03-07 23:09] LABS: Absolute Neutrophil Ct (ANC) 5.63 x10^3/uL (1.4-6.9); BASOPHIL % 0.9 % (0.0-0.4); Basophil (Absolute #) 0.09 x10^3/uL (0-0.4); Eosinophil % 2.4 % (0.00-5.0); Eosinophil (Absolute #) 0.25 x10^3/uL (0-0.5); Hematocrit 41.6 % (42-50); Hemoglobin 14.3 g/dL (12.5-18.0); IMMATURE GRAN # 0.05 x10^3u/L (0.00-0.03); IMMATURE GRAN % 0.5 % (0.00-0.4); Lymphocytes % 34.4 % (24.0-44.0); Mean Cell Volume 87.2 fL (78-100); Mean Corpuscular Hgb Concent. 34.4 g/dL (32-36); Mean Platelet Volume 10.2 fL (7.5-11.0); Monocyte (Absolute #) 0.84 x10^3/uL (0.0-1.3); Neutrophil % 53.8 % (36.0-66.0); Platelet Count 226 x10^3/uL (150-450); Red Blood Count 4.77 x10^6/uL (4.1-5.6); Red Cell Distribution Width 12.5 % (11.5-14.0); White Blood Count 10.5 x10^3/uL (4.0-10.5)
[2024-03-07 23:20] LABS: Appearance Clear (Clear); Bacteria None Seen /HPF (None Seen); Bilirubin Negative (Negative); Blood Negative (Negative); Epithelial Cells None Seen /HPF (None Seen); Glucose, Urine Negative (Negative); Hyaline Casts NONE SEEN /LPF (0-2); Ketones Trace (Negative); Leukocyte Esterase Negative (Negative); Nitrite Negative (Negative); Ph 5.5 (4.6-8.0); Protein,Urine Dip Trace (Negative); RBC 0-2 /HPF (0-5); Specific Gravity >=1.030 (1.005-1.030); WBC 0-2 /HPF (0-5)
[2024-03-07 23:21] LABS: ADD URINE CULTURE? NO (NO)
[2024-03-07 23:23] LABS: ALBUMIN 4.6 g/dL (3.5-5.0); ALKALINE PHOSPHATASE 97 U/L (38-126); AMYLASE 64 U/L (30-110); ANION GAP 16.6 MEQ/L (5-15); BLOOD UREA NITROGEN 21 mg/dL (9-20); CHLORIDE 104 mmol/L (98-107); Calcium 9.5 mg/dL (8.4-10.2); Carbon Dioxide 18 mmol/L (22-30); Creatinine 1 1.05 mg/dL (0.66-1.25); EST GLOMERULAR FILTRATION RATE 91.5 ML/MIN; ETHYL ALCOHOL < 10 mg/dL (0-10); Glucose 124 mg/dL (74-106); LIPASE 103 U/L (23-300); MAGNESIUM 1.9 mg/dL (1.6-2.3); Potassium 3.6 mmol/L (3.5-5.1); SGOT/AST 28 U/L (17-59); SGPT/ALT 24 U/L (0-50); SODIUM 135 mmol/L (135-145); Total Protein 7.7 g/dL (6.3-8.2)
[2024-03-07] MEDS ORDERED: Sodium Chloride 0.9% 500 ML 500 ML IV ONE (23:46)
[2024-03-08] MEDS: Sodium Chloride 0.9% 500 ML 500 ML IV ONE (00:01)
[2024-03-08 00:05] VITALS: O2SAT 99
[2024-03-08 01:01] VITALS: BP 124/61; PULSE 77; RESP 20
== END 2024-03-08 01:08 | disposition home or self-care (01) ==
LOC: ED 22:22
DX: R11.2 Nausea with vomiting, unspecified (principal); E86.0 Dehydration; E78.5 Hyperlipidemia, unspecified; I10 Essential (primary) hypertension; Z79.899 Other long term (current) drug therapy; Z72.0 Tobacco use
CPT/HCPCS: 36000; 36415; 80053; 81001; 82077; 82150; 83605; 83690; 83735; 85025; 96374; 96375; 99284; J2405